=== PATIENT | female | born 1985 | race Caucasian/White ===

== ENCOUNTER 2022-07-17 13:41 | Emergency (ER) | payer OTHER ==
[~2022-07-17] VITALS: Ht 165.1 cm; Wt 79.4 kg
[2022-07-17] MEDS ORDERED: ARTHRITIS PAI42.5 GM T (15:25)
[2022-07-17] MEDS ORDERED: CYCLOBENZAPRINE10 MG PO (15:25)
[2022-07-17] MEDS ORDERED: TYLENOL325 M1 PO (15:25)
[2022-07-17] MEDS ORDERED: MEDROL DOSEPAK4 MG PO (15:25)
[2022-07-17] MEDS ORDERED: METHOCARBAMOL500 M1 PO (16:09)
== END 2022-07-17 15:41 | disposition home or self-care (01) ==
LOC: ED 13:41
DX: M54.6 Pain in thoracic spine (principal); M54.2 Cervicalgia; M79.601 Pain in right arm; Z88.1 Allergy status to other antibiotic agents

== ENCOUNTER 2022-10-02 11:00 | Emergency (ER) | payer OTHER ==
[~2022-10-02] VITALS: Ht 165.1 cm; Wt 86.2 kg
[~2022-10-02 11:00] MED LIST: ARTHRITIS PAI42.5 GM T; CYCLOBENZAPRINE10 MG PO; MEDROL DOSEPAK4 MG PO; METHOCARBAMOL500 M1 PO; TYLENOL325 M1 PO
== END 2022-10-02 12:02 | disposition home or self-care (01) ==
LOC: ED 11:00
DX: M79.89 Other specified soft tissue disorders (principal); Z88.8 Allergy status to other drugs, medicaments and biological substances

== ENCOUNTER → 2023-02-22 | Outpatient (CLI) | payer OTHER ==
[2023-02-22 08:29] LABS: BASO % 0.8 % (0.0-1.0); EOS % 0.6 % (1.0-4.0); HEMATOCRIT 40.7 % (37.0-47.0); LYMPH # 0.9 10*3/uL (1.3-4.4); LYMPH % 17.8 % (27.0-41.0); MEAN CELL VOLUME 90.2 fl (81.0-99.0); MEAN CORPUSCULAR HGB 30.4 pg (27.0-31.0); MEAN CORPUSCULAR HGB CONC 33.7 g/dl (33.0-37.0); MEAN PLATELET VOLUME 8.7 fl (9.6-12.3); MONO # 0.3 10*3/uL (0.1-1.0); MONO % 5.7 % (3.0-9.0); NEUT # 3.9 10*3/uL (2.3-7.9); NEUT % 74.7 % (47.0-73.0); PLATELET COUNT AUTOMATED 336 10*3/uL (130-400); RED BLOOD COUNT 4.51 10*6/uL (4.10-5.10); RED CELL DISTRI WIDTH 13.2 % (0-14.5); WHITE BLOOD COUNT 5.3 10*3/uL (4.8-10.8)
[2023-02-22 09:04] LABS: ALKALINE PHOSPHATASE 84 U/L (46-116); BUN 7 mg/dl (9-23); CHLORIDE 106 mmol/L (98-107); CHOLESTEROL 149 mg/dL (<200); LDL CHOLESTEROL 73 mg/dL (9-159); POTASSIUM 4.3 mmol/L (3.4-5.1); SGPT/ALT 20 U/L (10-49); TOTAL PROTEIN 6.8 gm/dL (6.0-8.0); TRIGLYCERIDES 86 mg/dl (<150)
[2023-02-22 09:41] LABS: VITAMIN D, 25-HYDROXY 30.3 ng/mL (30-100)
== END | disposition home or self-care (01) ==
LOC: LAB 07:53
PROVIDERS: ATTEND Nurse Practitioner Family
DX: Z13.6 Encounter for screening for cardiovascular disorders (principal); R53.83 Other fatigue; A69.20 Lyme disease, unspecified

== ENCOUNTER → 2023-06-06 | Outpatient (CLI) | payer OTHER ==
[2023-06-06 13:25] LABS: BASO % 0.6 % (0.0-1.0); EOS # 0.2 10*3/uL (0.0-0.4); EOS % 2.2 % (1.0-4.0); HEMATOCRIT 40.8 % (37.0-47.0); LYMPH # 2.3 10*3/uL (1.3-4.4); LYMPH % 32.4 % (27.0-41.0); MEAN CELL VOLUME 90.5 fl (81.0-99.0); MEAN CORPUSCULAR HGB 29.7 pg (27.0-31.0); MEAN CORPUSCULAR HGB CONC 32.8 g/dl (33.0-37.0); MONO # 0.4 10*3/uL (0.1-1.0); MONO % 5.3 % (3.0-9.0); NEUT # 4.3 10*3/uL (2.3-7.9); NEUT % 59.1 % (47.0-73.0); PLATELET COUNT AUTOMATED 394 10*3/uL (130-400); RED BLOOD COUNT 4.51 10*6/uL (4.10-5.10); RED CELL DISTRI WIDTH 13.2 % (0-14.5); WHITE BLOOD COUNT 7.2 10*3/uL (4.8-10.8)
[2023-06-06 14:16] LABS: ALKALINE PHOSPHATASE 88 U/L (46-116); BUN 7 mg/dl (9-23); CHLORIDE 107 mmol/L (98-107); POTASSIUM 4.2 mmol/L (3.4-5.1); SGPT/ALT 17 U/L (10-49)
== END | disposition home or self-care (01) ==
LOC: LAB 13:02
PROVIDERS: ATTEND Nurse Practitioner Family
DX: F32.A Depression, unspecified (principal); E53.8 Deficiency of other specified B group vitamins; A69.20 Lyme disease, unspecified

== ENCOUNTER 2025-08-23 20:11 | Emergency (ER) | payer OTHER ==
[~2025-08-23] VITALS: Ht 165.1 cm; Wt 99.8 kg
[2025-08-23] MEDS ORDERED: Acetaminophen/Hydrocodone 5 MG/325 MG TABLET PO ONE ×2 (20:30→21:50)
[2025-08-23] MEDS ORDERED: NAPROSYN500 MG PO (21:44)
== END 2025-08-23 21:51 | disposition home or self-care (01) ==
LOC: ED 20:11
DX: S93.402A Sprain of unspecified ligament of left ankle, initial encounter (principal); Z88.8 Allergy status to other drugs, medicaments and biological substances; X50.1XXA Overexertion from prolonged static or awkward postures, initial encounter; Y93.01 Activity, walking, marching and hiking; Y92.89 Other specified places as the place of occurrence of the external cause; Y99.8 Other external cause status